=== PATIENT | male | born 1960 | race African-American/Black ===

== ENCOUNTER 2017-07-25 20:19 | Emergency (ER) | payer MEDICARE, MEDICAID ==
[~2017-07-25] VITALS: Ht 177.8 cm; Wt 77.0 kg
[2017-07-25] MEDS ORDERED: LIDOCAINE HCL 1% 20ML VIAL (Pyxis) INJ INFIL ONE (21:15)
[2017-07-25] MEDS ORDERED: ACETAMINOPHEN 325MG TABLET PO ONE (21:15)
[2017-07-25] MEDS ORDERED: LIDOCAINE/EPINEPHR/TETRACAINE 3ML TP ONE (21:15)
[2017-07-25] MEDS ORDERED: DIPHENHYDRAMINE 50MG CAPSULE PO ONE (21:15)
[2017-07-25] MEDS ORDERED: TETANUS, DIPHTHERIA, PERTUSSIS VAC/PF 0.5ML (>7YR OLD) IM ONE (22:45)
[2017-07-25 23:17] VITALS: BP 148/78
== END 2017-07-25 23:20 | disposition home or self-care (01) ==
LOC: ER 20:43
DX: S01.01XA Laceration without foreign body of scalp, initial encounter (principal); F84.0 Autistic disorder; F31.9 Bipolar disorder, unspecified; W20.8XXA Other cause of strike by thrown, projected or falling object, initial encounter; Y93.89 Activity, other specified; Y92.89 Other specified places as the place of occurrence of the external cause; Y99.8 Other external cause status
CPT/HCPCS: 12004; 90471; 90715; 99283; J3490; Q0163

== ENCOUNTER 2017-07-26 16:37 | Emergency (ER) | payer MEDICARE, MEDICAID ==
[~2017-07-26] VITALS: Ht 185.4 cm; Wt 84.0 kg
[2017-07-26 16:40] VITALS: BP 140/97
== END 2017-07-26 17:27 | disposition home or self-care (01) ==
LOC: ER 17:03
DX: S01.01XD Laceration without foreign body of scalp, subsequent encounter (principal); F84.0 Autistic disorder; F31.9 Bipolar disorder, unspecified; X58.XXXD Exposure to other specified factors, subsequent encounter; Y93.89 Activity, other specified; Y99.8 Other external cause status; Y92.89 Other specified places as the place of occurrence of the external cause; Z98.890 Other specified postprocedural states
CPT/HCPCS: 99283

== ENCOUNTER 2017-08-01 17:17 | Emergency (ER) | payer MEDICARE, MEDICAID ==
[~2017-08-01] VITALS: Ht 195.6 cm; Wt 86.0 kg
[2017-08-01 17:23] VITALS: BP 151/100
== END 2017-08-01 18:27 | disposition home or self-care (01) ==
LOC: ER 17:17
DX: S01.01XD Laceration without foreign body of scalp, subsequent encounter (principal); F31.9 Bipolar disorder, unspecified; F84.0 Autistic disorder; X58.XXXD Exposure to other specified factors, subsequent encounter
CPT/HCPCS: 99281

== ENCOUNTER 2019-10-06 17:46 | Inpatient (IN) | payer MEDICARE, MEDICAID ==
[~2019-10-06] VITALS: Ht 175.3 cm; Wt 84.8 kg
[2019-10-06] MEDS ORDERED: SODIUM CHLORIDE 0.9% 1,000 ML IV ONE (19:56)
[2019-10-06 20:33] LABS: CHLORIDE 107 mEq/L (98-107)
[2019-10-06 20:34] LABS: PROTHROMBIN TIME 11.3 sec (9.6-11.0)
[2019-10-06 20:39] LABS: ETHANOL BLOOD < 10 mg/dL
[2019-10-06 20:43] LABS: CLARITY URINE CLEAR (CLEAR); COLOR URINE YELLOW (YELLOW); KETONES URINE NEGATIVE (NEGATIVE); LEUKOCYTE ESTERASE URINE NEGATIVE (NEGATIVE); NITRITE URINE NEGATIVE (NEGATIVE); OCCULT BLOOD URINE TRACE (NEGATIVE); PH URINE 5.5 (4.5-8.0); PROTEIN URINE NEGATIVE (NEGATIVE); SPECIFIC GRAVITY URINE 1.016 (1.005-1.030); UROBILINOGEN URINE 0.2 E.U./dL (0.2-1.0)
[2019-10-06 20:44] LABS: BASOPHILS % 0.1 % (0.0-2.0); HEMOGLOBIN. 16.9 g/dL (14.0-18.0); LYMPHOCYTES % 10.8 % (20.0-50.0); MEAN CORPUSCULAR HEMOGLOBIN 32.8 pg (28.0-32.0); MEAN CORPUSCULAR VOLUME 93.4 fL (80.0-94.0); MONOCYTES % 2.9 % (2.0-8.0); NEUTROPHILS % 86.2 % (40.0-76.0); PLATELET 244 x1000/uL (130-400); RED BLOOD CELL COUNT 5.14 mill/uL (4.7-6.1); RED CELL DISTRIBUTION WIDTH 12.4 % (11.6-14.6)
[2019-10-06 21:19] LABS: *AMPHETAMINES SCREEN URINE NEGATIVE (NEGATIVE); *BARBITURATES SCREEN URINE NEGATIVE (NEGATIVE); *BENZODIAZEPINES SCREEN URINE NEGATIVE (NEGATIVE); *COCAINE SCREEN URINE NEGATIVE (NEGATIVE)
[2019-10-06 21:20] LABS: CANNABINOID URINE SCREEN NEGATIVE (NEGATIVE); METHADONE URINE SCREEN NEGATIVE (NEGATIVE); OPIATES URINE SCREEN NEGATIVE (NEGATIVE); PHENCYCLIDINE URINE SCREEN NEGATIVE (NEGATIVE)
[2019-10-06] MEDS ORDERED: LEVO100T9 MT (21:27)
[2019-10-06] MEDS ORDERED: PROP20TA19 MT (21:27)
[2019-10-06] MEDS ORDERED: OXCA600T20 MT (21:29)
[2019-10-06] MEDS ORDERED: OXCA600T20 PO (21:29)
[2019-10-06] MEDS ORDERED: OLANZAPINE 10 MG/VIAL IM ONE (22:15)
[2019-10-06] MEDS ORDERED: LORAZEPAM 2MG/ML CPJ IV ONE (23:00)
[2019-10-07] VITALS (24 sets, daily range): BP systolic 73–155; BP diastolic 16–113
[2019-10-07] MEDS ORDERED: SODIUM CHLORIDE 0.9% 1,000 ML IV SCH (01:10)
[2019-10-07] MEDS ORDERED: ASPIRIN 300MG SUPP PR ONE (01:15)
[2019-10-07] MEDS ORDERED: MORPHINE SULFATE 4 MG/ML CPJ (NOT FOR IM USE) IV ONE (04:30)
[2019-10-07] MEDS ORDERED: MORPHINE SULFATE 2 MG/ML CPJ (NOT FOR IM USE) IV PRN (09:30)
[2019-10-07] MEDS ORDERED: ASPIRIN 81MG EC TABLET PO SCH (09:30)
[2019-10-07] MEDS ORDERED: MAGNESIUM/ALUMINUM HYDROXIDE/SIMETHICONE 30ML UDC PO PRN (09:30)
[2019-10-07] MEDS ORDERED: CLONIDINE 0.1MG TABLET PO PRN (09:30)
[2019-10-07] MEDS ORDERED: GUAIFENESIN 200MG/10ML SUGAR FREE UDC PO PRN (09:30)
[2019-10-07] MEDS ORDERED: DIPHENHYDRAMINE 50MG/ML VIAL IV PRN (09:30)
[2019-10-07] MEDS ORDERED: IPRATROPIUM/ALBUTEROL 0.5-3(2.5)MG/3ML NEB HHN PRN (09:30)
[2019-10-07] MEDS ORDERED: LORAZEPAM 2MG/ML CPJ IV PRN (09:30)
[2019-10-07] MEDS ORDERED: ONDANSETRON HCL 4MG/2ML INJ IV PRN (09:30)
[2019-10-07] MEDS ORDERED: DOCUSATE SODIUM 100MG CAPSULE PO PRN (09:30)
[2019-10-07] MEDS ORDERED: HYDROCODONE/ACETAMINOPHEN 10/325MG TABLET PO PRN (09:30)
[2019-10-07] MEDS: ENOXAPARIN 40MG/0.4ML SYR SUBCUT SCH (13:00)
[2019-10-07] MEDS: DEXT 5%/0.45% NACL 1000ML 1,000 ML IV SCH (13:02)
[2019-10-07 14:23] LABS: CREATINE KINASE 836 IU/L (39-308)
[2019-10-07 14:24] LABS: CREATINE KINASE MB FRACTION 10.4 ng/mL (0.5-3.6)
[2019-10-07] MEDS: SODIUM CHLORIDE 0.9% INJ 3ML FLUSH IVF SCH ×2 (14:56→21:48)
[2019-10-07 15:58] LABS: CHLORIDE 114 mEq/L (98-107)
[2019-10-07 16:02] LABS: BASOPHILS % 0.1 % (0.0-2.0); HEMATOCRIT. 41.7 % (42.0-52.0); HEMOGLOBIN. 14.4 g/dL (14.0-18.0); LYMPHOCYTES % 10.6 % (20.0-50.0); MEAN CORPUSCULAR HEMOGLOBIN 32.7 pg (28.0-32.0); MEAN PLATELET VOLUME 7.4 fl (7.4-10.4); MONOCYTES % 6.4 % (2.0-8.0); NEUTROPHILS % 82.9 % (40.0-76.0); PLATELET 230 x1000/uL (130-400); RED BLOOD CELL COUNT 4.39 mill/uL (4.7-6.1); RED CELL DISTRIBUTION WIDTH 12.6 % (11.6-14.6)
[2019-10-07] MEDS ORDERED: HYDRALAZINE 20MG/ML VIAL IV PRN (17:08)
[2019-10-07] MEDS ORDERED: LEVETIRACETAM 500 MG in SODIUM CHLORIDE 0.9% 100 ML IV SCH (18:15)
[2019-10-07] MEDS: LEVETIRACETAM 500MG PREMIX 100 ML IV SCH (20:47)
[2019-10-07 23:42] LABS: CREATINE KINASE 796 IU/L (39-308)
[2019-10-07 23:43] LABS: CREATINE KINASE MB FRACTION 6.7 ng/mL (0.5-3.6)
[2019-10-08] VITALS (64 sets, daily range): BP systolic 115–157; BP diastolic 66–113
[2019-10-08 05:51] LABS: BASOPHILS % 0.2 % (0.0-2.0); HEMATOCRIT. 41.8 % (42.0-52.0); HEMOGLOBIN. 14.3 g/dL (14.0-18.0); LYMPHOCYTES % 13.1 % (20.0-50.0); MEAN CORPUSCULAR HEMOGLOBIN 32.6 pg (28.0-32.0); MEAN CORPUSCULAR VOLUME 95.4 fL (80.0-94.0); MEAN PLATELET VOLUME 7.4 fl (7.4-10.4); MONOCYTES % 10.3 % (2.0-8.0); NEUTROPHILS % 76.4 % (40.0-76.0); PLATELET 199 x1000/uL (130-400); RED BLOOD CELL COUNT 4.38 mill/uL (4.7-6.1); RED CELL DISTRIBUTION WIDTH 12.7 % (11.6-14.6)
[2019-10-08 06:00] LABS: CHLORIDE 115 mEq/L (98-107)
[2019-10-08 06:06] LABS: LDL CHOLESTEROL 154 mg/dL (5-100)
[2019-10-08 06:07] LABS: HDL CHOLESTEROL 58 mg/dL (40-59)
[2019-10-08] MEDS: DEXT 5%/0.45% NACL 1000ML 1,000 ML IV SCH (06:08)
[2019-10-08] MEDS: SODIUM CHLORIDE 0.9% INJ 3ML FLUSH IVF SCH ×3 (06:08→22:35)
[2019-10-08] MEDS: ASPIRIN 81MG EC TABLET PO SCH (08:44)
[2019-10-08] MEDS: ENOXAPARIN 40MG/0.4ML SYR SUBCUT SCH (08:51)
[2019-10-08] MEDS: LEVETIRACETAM 500MG PREMIX 100 ML IV SCH ×2 (08:51→20:30)
[2019-10-09] VITALS (12 sets, daily range): BP systolic 117–142; BP diastolic 67–83
[2019-10-09] MEDS: DEXT 5%/0.45% NACL 1000ML 1,000 ML IV SCH (04:36)
[2019-10-09] MEDS: SODIUM CHLORIDE 0.9% INJ 3ML FLUSH IVF SCH ×3 (05:41→21:19)
[2019-10-09] MEDS: ACETAMINOPHEN 325MG TABLET PO PRN ×2 (05:42→16:41)
[2019-10-09 07:03] LABS: BASOPHILS % 0.1 % (0.0-2.0); EOSINOPHILS % 0.1 % (0.0-5.0); HEMATOCRIT. 41.6 % (42.0-52.0); HEMOGLOBIN. 14.2 g/dL (14.0-18.0); MEAN CORPUSCULAR HEMOGLOBIN 32.7 pg (28.0-32.0); MEAN PLATELET VOLUME 7.3 fl (7.4-10.4); NEUTROPHILS % 74.8 % (40.0-76.0); PLATELET 185 x1000/uL (130-400); RED BLOOD CELL COUNT 4.33 mill/uL (4.7-6.1); RED CELL DISTRIBUTION WIDTH 12.4 % (11.6-14.6)
[2019-10-09 07:19] LABS: CHLORIDE 117 mEq/L (98-107)
[2019-10-09] MEDS: ASPIRIN 81MG EC TABLET PO SCH (09:21)
[2019-10-09] MEDS: ENOXAPARIN 40MG/0.4ML SYR SUBCUT SCH (09:26)
[2019-10-09] MEDS: LEVETIRACETAM 500MG PREMIX 100 ML IV SCH (09:26)
[2019-10-09 17:20] LABS: CREATINE KINASE 313 IU/L (39-308)
[2019-10-09 17:21] LABS: T4 FREE 0.77 ng/dL (0.76-1.46)
[2019-10-09] MEDS: LEVETIRACETAM 500MG/5ML CUP PO SCH (21:19)
[2019-10-10] VITALS (12 sets, daily range): BP systolic 115–144; BP diastolic 60–86
[2019-10-10] MEDS: DEXT 5%/0.45% NACL 1000ML 1,000 ML IV SCH ×2 (00:45→20:44)
[2019-10-10 01:12] LABS: CREATINE KINASE 269 IU/L (39-308)
[2019-10-10 01:14] LABS: CREATINE KINASE MB FRACTION 2.9 ng/mL (0.5-3.6)
[2019-10-10] MEDS: SODIUM CHLORIDE 0.9% INJ 3ML FLUSH IVF SCH ×3 (05:02→22:05)
[2019-10-10 07:09] LABS: BASOPHILS % 0.2 % (0.0-2.0); CHLORIDE 119 mEq/L (98-107); EOSINOPHILS % 1.3 % (0.0-5.0); HEMATOCRIT. 39.4 % (42.0-52.0); HEMOGLOBIN. 13.6 g/dL (14.0-18.0); LYMPHOCYTES % 20.7 % (20.0-50.0); MEAN CORPUSCULAR HEMOGLOBIN 32.7 pg (28.0-32.0); MEAN CORPUSCULAR VOLUME 94.9 fL (80.0-94.0); MEAN PLATELET VOLUME 7.3 fl (7.4-10.4); MONOCYTES % 8.2 % (2.0-8.0); NEUTROPHILS % 69.6 % (40.0-76.0); PLATELET 181 x1000/uL (130-400); RED BLOOD CELL COUNT 4.15 mill/uL (4.7-6.1); RED CELL DISTRIBUTION WIDTH 12.5 % (11.6-14.6)
[2019-10-10 07:17] LABS: CREATINE KINASE 249 IU/L (39-308)
[2019-10-10 07:19] LABS: CREATINE KINASE MB FRACTION 3.1 ng/mL (0.5-3.6)
[2019-10-10] MEDS: ENOXAPARIN 40MG/0.4ML SYR SUBCUT SCH (09:04)
[2019-10-10] MEDS: ASPIRIN 81MG EC TABLET PO SCH (09:04)
[2019-10-10] MEDS: LEVETIRACETAM 500MG/5ML CUP PO SCH ×2 (09:04→20:44)
[2019-10-11] VITALS (11 sets, daily range): BP systolic 111–133; BP diastolic 71–98
[2019-10-11] MEDS: SODIUM CHLORIDE 0.9% INJ 3ML FLUSH IVF SCH ×3 (05:03→22:01)
[2019-10-11 06:53] LABS: BASOPHILS % 0.3 % (0.0-2.0); EOSINOPHILS % 3.3 % (0.0-5.0); HEMATOCRIT. 40.2 % (42.0-52.0); HEMOGLOBIN. 13.9 g/dL (14.0-18.0); MEAN CORPUSCULAR VOLUME 95.2 fL (80.0-94.0); MEAN PLATELET VOLUME 7.4 fl (7.4-10.4); MONOCYTES % 9.6 % (2.0-8.0); NEUTROPHILS % 68.8 % (40.0-76.0); PLATELET 182 x1000/uL (130-400); RED BLOOD CELL COUNT 4.22 mill/uL (4.7-6.1); RED CELL DISTRIBUTION WIDTH 12.3 % (11.6-14.6)
[2019-10-11 07:08] LABS: CHLORIDE 117 mEq/L (98-107)
[2019-10-11] MEDS: ENOXAPARIN 40MG/0.4ML SYR SUBCUT SCH (09:44)
[2019-10-11] MEDS: ASPIRIN 81MG EC TABLET PO SCH (09:44)
[2019-10-11] MEDS: LEVETIRACETAM 500MG/5ML CUP PO SCH ×2 (11:39→21:57)
[2019-10-11] MEDS: DEXT 5%/0.45% NACL 1000ML 1,000 ML IV SCH (16:23)
[2019-10-11] MEDS: ACETAMINOPHEN 325MG TABLET PO PRN (17:36)
[2019-10-12] VITALS (16 sets, daily range): BP systolic 101–146; BP diastolic 54–84
[2019-10-12] MEDS: SODIUM CHLORIDE 0.9% INJ 3ML FLUSH IVF SCH ×3 (06:06→23:05)
[2019-10-12] MEDS: LEVETIRACETAM 500MG/5ML CUP PO SCH ×2 (08:41→20:05)
[2019-10-12] MEDS: ENOXAPARIN 40MG/0.4ML SYR SUBCUT SCH (08:41)
[2019-10-12] MEDS: ASPIRIN 81MG EC TABLET PO SCH (08:41)
[2019-10-12] MEDS: DEXT 5%/0.45% NACL 1000ML 1,000 ML IV SCH (15:22)
[2019-10-13] VITALS (15 sets, daily range): BP systolic 113–135; BP diastolic 66–78
[2019-10-13] MEDS: SODIUM CHLORIDE 0.9% INJ 3ML FLUSH IVF SCH ×3 (05:36→22:47)
[2019-10-13 06:31] LABS: CHLORIDE 116 mEq/L (98-107)
[2019-10-13] MEDS: LEVETIRACETAM 500MG/5ML CUP PO SCH ×2 (08:57→20:15)
[2019-10-13] MEDS: ASPIRIN 81MG EC TABLET PO SCH (08:57)
[2019-10-13] MEDS: ENOXAPARIN 40MG/0.4ML SYR SUBCUT SCH (08:58)
[2019-10-13] MEDS: DEXT 5%/0.45% NACL 1000ML 1,000 ML IV SCH ×2 (09:00→10:58)
[2019-10-14] VITALS (9 sets, daily range): BP systolic 112–127; BP diastolic 65–83
[2019-10-14] MEDS: DEXT 5%/0.45% NACL 1000ML 1,000 ML IV SCH (05:12)
[2019-10-14] MEDS: SODIUM CHLORIDE 0.9% INJ 3ML FLUSH IVF SCH (05:12)
[2019-10-14 06:13] LABS: CHLORIDE 115 mEq/L (98-107)
[2019-10-14 06:22] LABS: BASOPHILS % 0.3 % (0.0-2.0); EOSINOPHILS % 0.5 % (0.0-5.0); HEMATOCRIT. 39.8 % (42.0-52.0); HEMOGLOBIN. 13.7 g/dL (14.0-18.0); LYMPHOCYTES % 14.9 % (20.0-50.0); MEAN CORPUSCULAR HEMOGLOBIN 32.9 pg (28.0-32.0); MEAN CORPUSCULAR VOLUME 95.8 fL (80.0-94.0); MEAN PLATELET VOLUME 7.8 fl (7.4-10.4); MONOCYTES % 7.2 % (2.0-8.0); NEUTROPHILS % 77.1 % (40.0-76.0); PLATELET 218 x1000/uL (130-400); RED BLOOD CELL COUNT 4.15 mill/uL (4.7-6.1); RED CELL DISTRIBUTION WIDTH 12.4 % (11.6-14.6)
[2019-10-14] MEDS: LEVETIRACETAM 500MG/5ML CUP PO SCH (08:18)
[2019-10-14] MEDS: ASPIRIN 81MG EC TABLET PO SCH (08:18)
[2019-10-14] MEDS: ENOXAPARIN 40MG/0.4ML SYR SUBCUT SCH (08:30)
== END 2019-10-14 19:50 | DRG 64 ==
LOC: ER 17:46 → EDBEDREQSVC 20:00 → EDBEDREQ 20:00 → EDBEDREQTM 20:00 → EDBEDREQ 23:18 → EDBEDREQSVC 23:18 → EDBEDREQTM 23:18 → MICUSO 10-07 01:08 → EDBEDREQTM 10-07 01:09 → EDBEDREQDT 10-07 01:09 → EDBEDREQSVC 10-07 01:09 → ENRESERV 10-07 15:57 → 3WST 10-08 23:58 → 5WST 10-14 07:15
PROVIDERS: ADMIT Internal Medicine; ATTEND Internal Medicine
PROC: 4A10X4Z Monitoring of Central Nervous Electrical Activity, External Approach (ICD-10-PCS; principal; 2019-10-08)
DX: I63.512 Cerebral infarction due to unspecified occlusion or stenosis of left middle cerebral artery (principal); G92 Toxic encephalopathy; F84.0 Autistic disorder; E87.0 Hyperosmolality and hypernatremia; G40.909 Epilepsy, unspecified, not intractable, without status epilepticus; M48.02 Spinal stenosis, cervical region; F31.9 Bipolar disorder, unspecified; M43.12 Spondylolisthesis, cervical region; R00.1 Bradycardia, unspecified; M47.812 Spondylosis without myelopathy or radiculopathy, cervical region; Z86.73 Personal history of transient ischemic attack (TIA), and cerebral infarction without residual deficits; Z78.1 Physical restraint status; Z79.899 Other long term (current) drug therapy
CPT/HCPCS: 36415; 70551; 71045; 80048; 80053; 80061; 80305; 80320; 81003; 82550; 82553; 83036; 83605; 83880; 84145; 84439; 84443; 84484; 85025; 85379; 92610; 93005; 93306; 93880; 93970; 97162; 97530; 99291; J1650; J1953; J2060; J2270; J3490; J7030; G0480